=== PATIENT | male | born 1990 | race Two or more races ===

== ENCOUNTER 2024-05-24 10:06 | Inpatient (IN) | payer OTHER ==
[2024-05-24] VITALS (7 sets, daily range): BP systolic 145–147; BP diastolic 95–96; PULSE 90–103; RESP 18–21; TEMP 98.2–98.6; O2SAT 100
[~2024-05-24] VITALS: Ht 180.3 cm; Wt 90.7 kg
[2024-05-24 10:56] LABS: BASOPHILS % 0.6 % (0.0-1.0); EOSINOPHILS # (AUTO) 0.1 (0.0-0.4); EOSINOPHILS % 1.3 % (0.0-6.0); HEMATOCRIT 34.5 % (38.2-49.6); HEMOGLOBIN 11.1 g/dL (14.0-18.0); LYMPHOCYTES # (AUTO) 2.4 (1.0-3.2); LYMPHOCYTES % 33.8 % (18.0-39.1); MEAN CORPUSCULAR HEMOGLOBIN 26.4 pg (28-32); MEAN CORPUSCULAR HGB CONC 32.2 g/dL (31-35); MEAN CORPUSCULAR VOLUME 81.9 fL (81-99); MONOCYTES # (AUTO) 0.9 (0.2-0.8); MONOCYTES % 12.9 % (4.4-11.3); NEUTROPHILS # (AUTO) 3.6 (2.1-6.9); PLATELET COUNT 523 x10e3/uL (140-360); RED BLOOD COUNT 4.21 x10e6/uL (4.3-5.7); RED CELL DISTRIBUTION WIDTH 15.7 % (11.7-14.4); WHITE BLOOD COUNT 7.05 x10e3/uL (4.8-10.8)
[2024-05-24 11:28] LABS: INR 0.88; PARTIAL THROMBOPLASTIN TIME 26.3 seconds (23.8-35.5); PROTHROMBIN TIME 12.5 seconds (11.9-14.5)
[2024-05-24 11:37] LABS: ALBUMIN 3.1 g/dL (3.5-5.0); ALBUMIN/GLOBULIN RATIO 0.9 (0.8-2.0); ANION GAP 13.6 mmol/L (8-16); BILIRUBIN,TOTAL 1.2 mg/dL (0.2-1.2); CALCIUM 8.9 mg/dL (8.4-10.2); CREATININE, SERUM 1.03 mg/dL (0.72-1.25); POTASSIUM 4.6 mmol/L (3.5-5.1); TOTAL PROTEIN 6.5 g/dL (6.5-8.1)
[2024-05-24] MEDS: ONDANSETRON HCL INJ 2MG/ML 2ML 2 MG/ML VIAL IV STA (11:40)
[2024-05-24] MEDS: SODIUM CHLORIDE 0.9% 1000ML 1,000 ML IV ONE (11:41)
[2024-05-24] MEDS ORDERED: IOPAMIDOL 370 MG/ML 100 ML INFUS..BTL INJ ONE (11:55)
[2024-05-24] MEDS: Morphine 2mg Syringe 2 MG/ML SYR IV ONE (12:34)
[2024-05-24 15:20] LABS: HEMATOCRIT 32.1 % (38.2-49.6); HEMOGLOBIN 10.4 g/dL (14.0-18.0)
[2024-05-24] MEDS: ONDANSETRON HCL INJ 2MG/ML 2ML 2 MG/ML VIAL IV PRN (15:32)
[2024-05-24] MEDS: SODIUM CHLORIDE 0.9% 1000ML 1,000 ML IV SCH (15:32)
[2024-05-24] MEDS: Morphine 2mg Syringe 2 MG/ML SYR IV PRN (15:33)
[2024-05-24] MEDS ORDERED: FLUOXETINE HCL40 MG PO (15:49)
[2024-05-24] MEDS ORDERED: DESCOVY 200-251 EACH PO (15:49)
[2024-05-24] MEDS ORDERED: TESTOSTERO200 MG/11 IM (15:55)
[2024-05-24] MEDS: CITRATE OF MAGNESIA 300ML BOTTLE PO ONE (17:19)
[2024-05-24] MEDS: PEG (High)/E-LYTE SOLN 4,000 ML BTL PO ONE (17:20)
[2024-05-24 20:29] LABS: HEMATOCRIT 31.4 % (38.2-49.6); HEMOGLOBIN 10.1 g/dL (14.0-18.0)
[2024-05-25 01:34] LABS: HEMATOCRIT 29.8 % (38.2-49.6); HEMOGLOBIN 9.6 g/dL (14.0-18.0)
[2024-05-25 03:35] VITALS: BP 145/82; PULSE 93; RESP 18; TEMP 98.8; O2SAT 100
[2024-05-25 06:03] LABS: BASOPHILS % 0.3 % (0.0-1.0); EOSINOPHILS # (AUTO) 0.1 (0.0-0.4); EOSINOPHILS % 1.5 % (0.0-6.0); HEMATOCRIT 27.2 % (38.2-49.6); HEMOGLOBIN 8.8 g/dL (14.0-18.0); LYMPHOCYTES # (AUTO) 2.5 (1.0-3.2); LYMPHOCYTES % 27.3 % (18.0-39.1); MEAN CORPUSCULAR HEMOGLOBIN 26.3 pg (28-32); MEAN CORPUSCULAR HGB CONC 32.4 g/dL (31-35); MEAN CORPUSCULAR VOLUME 81.4 fL (81-99); MONOCYTES # (AUTO) 0.9 (0.2-0.8); MONOCYTES % 9.4 % (4.4-11.3); NEUTROPHILS # (AUTO) 5.6 (2.1-6.9); NEUTROPHILS % 61.3 % (38.7-80.0); PLATELET COUNT 465 x10e3/uL (140-360); RED BLOOD COUNT 3.34 x10e6/uL (4.3-5.7); RED CELL DISTRIBUTION WIDTH 15.7 % (11.7-14.4); WHITE BLOOD COUNT 9.15 x10e3/uL (4.8-10.8)
[2024-05-25 06:20] LABS: ALBUMIN 2.8 g/dL (3.5-5.0); ALBUMIN/GLOBULIN RATIO 0.9 (0.8-2.0); ANION GAP 12.2 mmol/L (8-16); BILIRUBIN,TOTAL 1.6 mg/dL (0.2-1.2); CALCIUM 7.9 mg/dL (8.4-10.2); CREATININE, SERUM 1.06 mg/dL (0.72-1.25); POTASSIUM 4.2 mmol/L (3.5-5.1); TOTAL PROTEIN 5.8 g/dL (6.5-8.1)
[2024-05-25] MEDS ORDERED: LIDOCAINE HCL 2% LOCAL INJ 5 ML SDV VIAL INJ ONE (07:43)
[2024-05-25] MEDS ORDERED: PROPOFOL IV EMULSION 50 ML IV ONE (07:43)
[2024-05-25] MEDS ORDERED: FENTANYL CITRATE/PF 100MCG/2 ML INJ ONE (07:43)
[2024-05-25 09:08] LABS: FERRITIN 21.54 ng/mL (21.81-274.66)
[2024-05-25 09:10] VITALS: BP 138/77; PULSE 91; RESP 18; TEMP 98.5; O2SAT 100
[2024-05-25] MEDS ORDERED: SODIUM CHLORIDE 0.9% 100 ML ONE (09:14)
[2024-05-25] MEDS ORDERED: PHENYLEPHRINE HCL 1% 10 MG/ML VIAL ONE (09:14)
[2024-05-25 09:31] VITALS: BP 138/77; PULSE 91; RESP 18; TEMP 98.5; O2SAT 100
[2024-05-25 09:57] LABS: CHOL/HDL RATIO 24.1 (3.9-4.7)
[2024-05-25 11:24] LABS: THYROID STIMULATING HORMONE 1.422 uIU/mL (0.350-4.940)
[2024-05-25 12:44] VITALS: BP 127/75; PULSE 95; RESP 18; TEMP 98.4; O2SAT 100
[2024-05-25 13:49] LABS: HEMOGLOBIN 8.9 g/dL (14.0-18.0)
[2024-05-25 14:49] LABS: HIV 1&2 AB SCREEN NON-REACTIVE (NONREACTIVE); HIV- 1 P24 AG SCREEN NON-REACTIVE (NONREACTIVE)
[2024-05-25 20:00] VITALS: BP 121/62; PULSE 87; RESP 18; TEMP 98.2; O2SAT 100
[2024-05-25] MEDS: ACETAMINOPHEN/CODEINE 300MG - 30MG TAB PO PRN (20:23)
[2024-05-25 21:38] VITALS: BP 121/62; PULSE 87; RESP 18; TEMP 98.2; O2SAT 100
[2024-05-25 22:29] LABS: HEMATOCRIT 26.2 % (38.2-49.6); HEMOGLOBIN 8.2 g/dL (14.0-18.0)
[2024-05-26] VITALS (7 sets, daily range): BP systolic 122–160; BP diastolic 59–73; PULSE 88–96; RESP 16–18; TEMP 98.1–98.9; O2SAT 100
[2024-05-26 07:43] LABS: HEMATOCRIT 25.1 % (38.2-49.6); HEMOGLOBIN 7.9 g/dL (14.0-18.0)
[2024-05-26] MEDS: FLUOXETINE HCL 20 MG CAP PO SCH (09:15)
[2024-05-26 12:47] LABS: HEMATOCRIT 24.7 % (38.2-49.6)
[2024-05-26 12:48] LABS: HEMOGLOBIN 7.7 g/dL (14.0-18.0)
[2024-05-26] MEDS ORDERED: MAGNESIUM HYDROXIDE 30 ML UDC PO PRN (14:15)
[2024-05-26] MEDS: LORATADINE 10 MG TAB PO SCH (15:46)
[2024-05-26] MEDS: IRON SUCROSE 100 MG in SODIUM CHLORIDE 0.9% 100 ML IV ONE (15:47)
[2024-05-26] MEDS: SENNA-S TABLET PO SCH (16:18)
[2024-05-26] MEDS: ACETAMINOPHEN 325 MG TAB PO ONE (16:18)
[2024-05-26 19:47] LABS: HEMATOCRIT 24.7 % (38.2-49.6); HEMOGLOBIN 7.9 g/dL (14.0-18.0)
[2024-05-27] VITALS: BP 122/60; PULSE 83; RESP 20; TEMP 97.5; O2SAT 99
[2024-05-27 06:01] VITALS: BP 144/60; PULSE 92; RESP 16; TEMP 99; O2SAT 100
[2024-05-27 07:38] LABS: BASOPHILS % 0.2 % (0.0-1.0); EOSINOPHILS # (AUTO) 0.2 (0.0-0.4); EOSINOPHILS % 3.3 % (0.0-6.0); HEMATOCRIT 24.5 % (38.2-49.6); HEMOGLOBIN 7.8 g/dL (14.0-18.0); LYMPHOCYTES # (AUTO) 1.9 (1.0-3.2); LYMPHOCYTES % 37.5 % (18.0-39.1); MEAN CORPUSCULAR HEMOGLOBIN 26.4 pg (28-32); MEAN CORPUSCULAR HGB CONC 31.8 g/dL (31-35); MEAN CORPUSCULAR VOLUME 83.1 fL (81-99); MONOCYTES # (AUTO) 0.6 (0.2-0.8); NEUTROPHILS # (AUTO) 2.4 (2.1-6.9); NEUTROPHILS % 46.8 % (38.7-80.0); RED BLOOD COUNT 2.95 x10e6/uL (4.3-5.7); RED CELL DISTRIBUTION WIDTH 15.9 % (11.7-14.4); WHITE BLOOD COUNT 5.17 x10e3/uL (4.8-10.8)
[2024-05-27 07:59] LABS: PLATELET COUNT 440 x10e3/uL (140-360)
[2024-05-27] MEDS: ACETAMINOPHEN 325 MG TAB PO SCH (08:00)
[2024-05-27 08:24] VITALS: BP 118/53; PULSE 83; RESP 20; TEMP 98.4; O2SAT 100
[2024-05-27] MEDS: IRON SUCROSE 100 MG in SODIUM CHLORIDE 0.9% 100 ML IV SCH (08:46)
[2024-05-27 09:00] VITALS: BP 118/53; PULSE 83; RESP 20; TEMP 98.4; O2SAT 100
[2024-05-27 12:10] VITALS: BP 138/75; PULSE 89; RESP 18; TEMP 99; O2SAT 100
[2024-05-28 10:48] LABS: ALPHA-1-ANTITRYPSIN 176 mg/dL (95-164); ANTI-MITOCHONDRIAL AB SCREEN <20.0 Units (0.0-20.0); SMOOTH MUSCLE ANTIBODY(ACTIN) 6 Units (0-19)
[2024-05-30 07:40] LABS: TISSUE TRANSGLUTAMINASE IGA AB <2
[2024-05-30 07:41] LABS: ENDOMYSIAL ANTIBODIES, IGA Negative; IMMUNOGLOBULIN A 153 (81-463)
[2024-05-30 07:42] LABS: HEPATITIS A ANTIBODY IGM (P) Negative; HEPATITIS B CORE IGM (P) Negative; HEPATITIS B SURFACE AG (P) Negative
[2024-05-30 07:43] LABS: ALPHA FETO-PROTEIN 2.9; HEPATITIS C ANTIBODY Non Reactive
== END 2024-05-27 13:55 | disposition home or self-care (01) | DRG 920 ==
LOC: ER 10:10 → ERHOLD 14:36 → MED/SURG3 15:43 → OBSVTOIN 05-26 14:16
PROVIDERS: ADMIT Internal Medicine; ATTEND Internal Medicine
PROC: 0W3P8ZZ Control Bleeding in Gastrointestinal Tract, Via Natural or Artificial Opening Endoscopic (ICD-10-PCS; principal; 2024-05-25 09:03)
DX: K91.840 Postprocedural hemorrhage of a digestive system organ or structure following a digestive system procedure (principal); D62 Acute posthemorrhagic anemia; K92.2 Gastrointestinal hemorrhage, unspecified; K64.8 Other hemorrhoids; Z86.0100 Personal history of colon polyps, unspecified; R74.01 Elevation of levels of liver transaminase levels; Y83.8 Other surgical procedures as the cause of abnormal reaction of the patient, or of later complication, without mention of misadventure at the time of the procedure; Y92.009 Unspecified place in unspecified non-institutional (private) residence as the place of occurrence of the external cause; Z79.899 Other long term (current) drug therapy
CPT/HCPCS: 36415; 44391; 74174; 80053; 80061; 82103; 82105; 82390; 82607; 82728; 82746; 82784; 83010; 83516; 83540; 84443; 84466; 85014; 85018; 85025; 85045; 85610; 85730; 86039; 86255; 86256; 86376; 86850; 86900; 87390; 99284; G0378; G0433; G0435; J1756; J2003; J2270; J2371; J2405; J2470; J7030; J7050; Q9967